=== PATIENT | female | born 1945 | race Caucasian/White ===

== ENCOUNTER 2025-06-21 14:23 | Outpatient (CLI) | payer MEDICARE, MEDICAID ==
--- NOTE | 2025-06-21 16:00 | RADIOLOGY REPORT ---
EXAM: CT CT CHEST LOW DOSE Reason for study/Clinical History: PERSONAL HISTORY OF NICOTINE DEPENDENCE Comparison Study: None Exam Date: 06/21/2025 02:53 PM TECHNIQUE: Multidetector CT of the chest was performed from the lung apices to the upper abdomen without the use of intravenous contract. Axial, coronal and sagittal multiplanar reformats were performed. Radiation Dose Information: CT Dose: CTDI volume is 2.8 mGy. Dose-length product is 104 mGy*cm The dose indicators for CT are the volume Computed Tomography (CT) Dose Index (CTDIvol) and the Dose Length Product (DLP), and are measured in units of mGy and mGy-cm, respectively. These indicators are not patient dose, but values generated from the CT scanner acquisition factors. The report includes radiation exposure data for exposures received during this examination. FINDINGS: Lower neck: Unremarkable. Lungs and Pleura: 6 mm medial right lower lobe nodule (image [id number]). Bronchial wall thickening. Biapical and posterior right upper lobe subpleural scarring. No pleural effusions. Lymph nodes: No mediastinal, hilar, or axillary lymphadenopathy. Cardiovascular and Mediastinum: No significant pericardial effusion. Scattered coronary calcifications. Osseous and soft tissues: No suspicious osseous lesions. Upper abdomen: No acute abnormality in the visualized upper abdomen. IMPRESSION: 6 mm right lower lobe nodule. Recommend follow-up with low-dose CT in 6-12 months. Bronchial wall thickening, which can be infectious or inflammatory. Biapical and posterior right upper lobe subpleural scarring. Lung-RADS: Recommendation: Low-dose CT in 6 months.
== END 2025-06-21 23:59 | disposition home or self-care (01) ==
LOC: RAD 14:23
PROVIDERS: ATTEND Nurse Practitioner Occupational Health
DX: Z12.2 Encounter for screening for malignant neoplasm of respiratory organs (principal); R91.1 Solitary pulmonary nodule; Z87.891 Personal history of nicotine dependence
CPT/HCPCS: 71271